=== PATIENT | female | born 1965 | race Caucasian/White ===

== ENCOUNTER → 2021-10-25 12:56 | Outpatient (CLI) | payer OTHER, SELFPAY ==
--- NOTE | 2021-10-25 13:00 | DI.RAD.S_ITS ---
PROCEDURE: XR LUMBAR SPINE MIN 4V INDICATIONS: BACK PAIN TECHNIQUE: 5 views of the lumbar spine were acquired, including bilateral oblique views. COMPARISON: None. FINDINGS: Bones: 5 nonrib-bearing vertebrae are present. There is normal bony alignment. No acute vertebral body compression fractures. No suspicious bony lesions. Mild degenerative changes of the bilateral hips. Multilevel lumbar spondylosis with degenerative endplate changes, endplate osteophyte formation, and facet arthropathy noted throughout the lumbar spine. Findings are most pronounced from L3-4 through L5-S1. Soft tissues: Overlying bowel gas pattern is normal. No suspicious soft tissue calcifications. Surgical clips in right upper quadrant compatible with prior cholecystectomy. Oblique images: No pars defects. IMPRESSION: 1. Lumbar spine without acute fracture or malalignment. 2. Multilevel lumbar spondylosis. Dictated by: Allen Robin M.D. on 10/25/2021 at 13:58 Approved by: Allen Robin M.D. on 10/25/2021 at 14:00
--- NOTE | 2021-10-25 13:00 | DI.RAD.S_ITS ---
PROCEDURE: XR SHOULDER LT MIN 2V INDICATIONS: LEFT SHOULDER PAIN TECHNIQUE: 3 views of the shoulder were acquired. COMPARISON: [facility], RG, XR SHOULDER 3V LEFT, 10/29/2008, 15:50. FINDINGS: Bones: No fractures or dislocations. No suspicious bony lesions. Visualized ribs appear intact. Mild AC joint hypertrophy present. Soft tissues: No suspicious soft tissue calcifications. IMPRESSION: No acute osseous abnormality. Dictated by: Rohan Tatum M.D. on 10/25/2021 at 14:51 Approved by: Rohan Tatum M.D. on 10/25/2021 at 14:57
== END ==
PROVIDERS: PCP Nurse Practitioner; Referring Provider Physical Medicine & Rehabilitation; Visit Provider Physical Medicine & Rehabilitation
DX: M19.012 Primary osteoarthritis, left shoulder (principal); M75.42 Impingement syndrome of left shoulder; M47.816 Spondylosis without myelopathy or radiculopathy, lumbar region; M47.817 Spondylosis without myelopathy or radiculopathy, lumbosacral region; M25.512 Pain in left shoulder; M54.9 Dorsalgia, unspecified
CPT/HCPCS: 20611; 72110; 73030; J0702